=== PATIENT | female | born 1955 | race Caucasian/White ===

== ENCOUNTER 2017-12-01 08:28 | Outpatient (REF) | payer MEDICAID, SELFPAY ==
[2017-12-01 14:59] LABS: ALT 25 U/L (12-78); AST 16 U/L (15-37); Albumin 3.8 g/dL (3.4-5.0); Alkaline Phosphatase 101 U/L (46-116); Anion Gap 7.9 mmol/L (3-11); BUN 11 mg/dL (7-18); Bilirubin, Total 0.4 mg/dL (0.2-1.0); CO2 31.1 mmol/L (21.0-32.0); CREATININE 0.63 mg/dL (0.55-1.02); Calcium 9.4 mg/dL (8.5-10.1); Chloride 105 mmol/L (98-107); Cholesterol 211 mg/dL (50-200); Glucose 126 mg/dL (70-100); HDL Cholesterol 34 mg/dL (40-60); LDL CHOLESTEROL 145 mg/dL (<100); Potassium 4.2 mmol/L (3.5-5.1); Sodium 144 mmol/L (136-145); Total Protein 7.2 g/dL (6.4-8.2); Triglyceride 212 mg/dL (30-150)
== END 2017-12-01 08:48 ==
LOC: NCHCN 08:28
PROVIDERS: PCP Nurse Practitioner; Visit Provider Nurse Practitioner
DX: I10 Essential (primary) hypertension (principal); E78.2 Mixed hyperlipidemia
CPT/HCPCS: 80053; 80061; 83721

== ENCOUNTER 2018-03-30 13:28 | Outpatient (REF) | payer MEDICAID, SELFPAY ==
[2018-03-30 19:56] LABS: Cholesterol 239 mg/dL (50-200); HDL Cholesterol 39 mg/dL (40-60); LDL CHOLESTEROL 152 mg/dL (<100); Triglyceride 313 mg/dL (30-150)
== END 2018-03-30 13:48 ==
LOC: NCHCN 13:28
PROVIDERS: PCP Nurse Practitioner; Visit Provider Nurse Practitioner
DX: E78.2 Mixed hyperlipidemia (principal); R73.9 Hyperglycemia, unspecified
CPT/HCPCS: 80061; 83721

== ENCOUNTER 2018-10-25 05:20 | Observation (INO) | payer MEDICAID, SELFPAY ==
[2018-10-25] VITALS (8 sets, daily range): BP systolic 130–192; BP diastolic 81–106; PULSE 102–120; RESP 18–20; TEMP 36.2–37.6; O2SAT 93–97
--- NOTE | 2018-10-25 05:35 | DI.CT_ITS ---
SYMPTOM/DIAGNOSIS: HEMOPTYSIS, PLEURITIC CHEST PAIN, TOBACCO HISTORY PE CHEST CT: CT angiography was performed with multi slice acquisition and multi planar and 3D reconstruction. The study was carried out according to the usual protocol. There is no evidence of PE. There is no evidence of an aortic dissection. There is a 5.8 by 4.5 cm. left lower lobe mass consistent with a tumor. The mass encases the pulmonary arteries. There are small patchy ground glass opacities in the upper lobes and a 6 mm. pleural based nodule is identified in the superior right upper lobe. There are findings consistent with centrilobular emphysema. There is no pneumothorax or pleural effusion. There is no pericardial effusion. There is no evidence of lymphadenopathy. There is no acute bony abnormality. SUMMARY: A 5.8 by 4.5 cm. left lower lobe mass would be consistent with a tumor. There are small patchy ground glass densities bilaterally in the upper lobes which could represent an infectious process. A 6 mm. pleural based nodular density is also identified in the superior right lower lobe. There is no evidence of pulmonary embolic disease.
--- NOTE | 2018-10-25 05:37 | W.ED.GENAD ---
Discharge Plan Disposition Patient Disposition: [facility] INPATIENT Condition: Stable Discharge Details Chief Complaint: RespSymp Clinical Impression: Cough with hemoptysis, Lung mass Primary Care Provider: Gabriela Steen ED Provider: Castillo Denny Home Meds and New Rx's Prescriptions: No Action pravastatin [Pravachol] 40 MG tablet 40 mg PO DAILY RF: 0 aspirin [Aspirin Low-Strength] 81 MG tablet,chewable 81 mg PO DAILY RF: 0 hydrochlorothiazide 25 MG tablet 25 mg PO DAILY RF: 0 FLEXERIL 10 MG tablet 10 mg PO BID PRNRF: 0 cholecalciferol (vitamin D3) [Vitamin D3] 2,000 UNIT tablet 2,000 unit PO DAILY RF: 0 losartan 25 mg Tablet 25 mg PO DAILY RF: 0 Medical Decision Making This is a 62-year-old female with past medical history of pretension, high cholesterol, tobacco abuse daily aspirin use who presents for evaluation of hemoptysis. Patient states that she developed scant hemoptysis 6 months ago, was told by her PCP to return in 6 months for reevaluation. Patient states that over the last few days she has had a significant notable increase in her hemoptysis including large clots. She does admit to pleuritic chest pain in the left side of her chest that radiates to her left back. She also states that since she was taken off her metoprolol she has noticed an exertional chest pain which she describes as a chest tightness and squeeze, worse with exertion and activity, improved by rest. She denies any history of PE or blood clots. She denies any history of personal NE. Physical exam demonstrates crackles in the bases of her lungs, mild tachycardia, no hypoxemia. Pulses are equal bilaterally, exam is otherwise benign. Differential is concerning for PE, stable angina, Anupam's granulomatosis, cancer pulmonary mass. We will get a CT angiogram of the patient's chest for further evaluation, perform an ACS work-up, rehydrate the patient, and reassess. Initially EKG at this time is positive for tachycardia but otherwise relatively unremarkable. 8 AM Laboratory work-up is returned benign, EKG benign, troponin negative, CT scan has returned and demonstrates notable left-sided lung mass, notably concerning for a tumor. Patient's hemoptysis is stabilized here. Vital signs are relatively stable. I discussed the findings with the patient she is notably distraught. She does have significant difficulty at this time grasping the current situation. I do not feel that she is safe for discharge home for close follow-up. I contacted the hospitalist, he agrees with the assessment and plan. Recommendation is 24-hour observation, expedited follow-up with pulmonology for biopsy, and oncology for treatment. Dr. Colby agrees with the assessment and plan. I have extensively reviewed the treatment plan with the patient. I have addressed all patient concerns at this time. I have also discussed the plan with the admitting physician and they agree with the current assessment and plan and have agreed to assume responsibility for the patient. All parties demonstrate verbal understanding and agreement with our assessment and plan at this time. EKG 5: 42 Rate 105, intervals normal, sinus tachycardia, no significant ST elevations or depressions, no T wave inversions aside for in V1. No Q waves. FINDINGS: Pulmonary arteries: No PE Aorta: No aortic dissection. Lungs: 5.8 x 4.5 cm left lower lobe mass consistent with tumor. The mass encases pulmonary arteries. Small patchy ground glass opacities in bilateral upper lobes. 6 mm pleural-based nodular density in the superior right lower lobe. Centrilobular emphysematous changes Pleural space: No pneumothorax. No pleural effusion. Heart: No pericardial effusion. Lymph nodes: No enlarged lymph nodes. Bones/joints: No acute fracture. Soft tissues: Unremarkable. IMPRESSION: 1: 5.8 x 4.5 cm left lower lobe mass consistent with tumor. 2: Small patchy ground glass opacities in bilateral upper lobes. Possible mild infection 3: 6 mm pleural-based nodular density in the superior right lower lobe 4: No PE THIS REPORT CONTAINS FINDINGS THAT MAY BE CRITICAL TO PATIENT CARE. The findings were verbally communicated via telephone conference with CASTILLO DENNY at 7:24 AM EDT on 10/25/2018. The findings were acknowledged and understood. Thank you for allowing us to participate in the care of your patient. Dictated and Authenticated by: Elieser Ravi MD [facility] General Date/Time Provider Initiated Documentation: 10/25/18 05:26. HPI Narrative: This is a 62-year-old female with a past medical history of hypertension, high cholesterol, chronic tobacco abuse, who presents today for evaluation of hemoptysis. Patient states that 6 months ago she was noticing scant amounts of hemoptysis in her sputum when she would cough. Per patient she states that at that time her PCP no additional recommendations and recommended follow-up in 6 months. Patient states that she is continued to have small amounts of scant hemoptysis however over the last few days she has noticed a significant increase. She is also noticed associated pleuritic chest pain, a burning sensation in her chest. It radiates to her left shoulder. In addition to this she has noticed that since she stopped taking her metoprolol she is noticed an exertional chest pain which she describes as a tightness in her left chest. Worse when she walks, performs activities, or exerts herself. Improved with rest. She denies any arm or neck pain. She denies any headache or vision changes. She denies any fever or chills. She does admit to a 30 pound weight loss over the last year. She does take daily aspirin but no other blood thinners. She continues to smoke regularly. She has no other complaints or modifying factors. She denies any history of long trips, recent surgeries or procedures, previous history of PE or DVT. She denies a family history of PE or recent NE. Related Data Home Medications Medication Instructions Recorded Confirmed Flexeril 10 mg PO BID PRN tab-cap 08/24/12 10/25/18 aspirin [Aspirin Low-Strength] 81 mg PO DAILY tab-cap 08/24/12 10/25/18 hydrochlorothiazide 25 mg PO DAILY tab-cap 08/24/12 10/25/18 pravastatin [Pravachol] 40 mg PO DAILY tab-cap 08/24/12 10/25/18 cholecalciferol (vitamin D3) 2,000 unit PO DAILY 06/13/16 10/25/18 [Vitamin D3] losartan 25 mg PO DAILY 10/25/18 10/25/18 Allergies Allergy/AdvReac Type Severity Reaction Status Date / Time LAZARO Inhibitors Allergy Severe airway Unverified 10/25/18 07:49 edema ciprofloxacin [From Cipro] Allergy Severe Hives Unverified 10/25/18 07:49 ciprofloxacin HCl Allergy Severe Hives Unverified 10/25/18 07:49 [From Cipro] lisinopril Allergy Severe airway Unverified 10/25/18 07:49 edema General Stated Complaint: RespSymp RAVEN: 4 Review of Systems Review of Systems ROS Unobtainable: All systems reviewed & are unremarkable except as noted in HPI and below PFSH Medical History Acquired hallux rigidus Arthritis thumb joints atherosclerosis Bruit 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 Sister Obesity Sister Obesity Sister Obesity Sister Obesity Sister Obesity Brother No problems noted. Brother No problems noted. Brother No problems noted. Brother No problems noted. Brother No problems noted. Social History Smoking/Tobacco Use Status: Current every day Drug use: Never Do you feel safe in your relationship?: Yes Exam Narrative Exam Narrative: 1.Const: Well-nourished, Well-developed, appearing stated age 2.Eyes: PERRL, no conjunctival injection, and symmetrical lids. 3.ENT: Atraumatic external nose and ears. Moist MM. Neck: Symmetric, trachea midline, No thyromegaly. 4.CVS: +S1/S2, No murmurs or gallops. Peripheral pulses 2+ and equal in all extremities. Brisk capillary refill in all extremities. 5.RESP: Unlabored respiratory effort. Crackles in the bases bilaterally 6.GI: Soft, Nontender/Nondistended, No hepatosplenomegaly. No guarding or rebound. 7.MSK: Normocephalic/Atraumatic, Extremities w/o deformity or ttp No cyanosis or clubbing, Normal movement of all extremities 8.Skin: Warm, Dry. No rashes or lesions. 9.Neuro: principal archaeologist II-XII grossly intact. Sensation grossly intact, no focal neurologic deficits. 10.Psych: (AAO) x3. Appropriate mood and affect Course Vital Signs Vital signs: Vital Signs Temperature 36.8 C 10/25/18 05:25 Pulse 111 H 10/25/18 05:25 Respiratory Rate 20 10/25/18 05:25 Blood Pressure 133/94 H 10/25/18 05:25 Pulse Oximetry 95 10/25/18 05:25 Temperature 36.8 C 10/25/18 05:25 Temperature Source Temporal Artery Scan 10/25/18 05:25 Pulse 111 H 10/25/18 05:25 Respiratory Rate 20 10/25/18 05:25 Respiratory Effort Non-Labored 10/25/18 05:28 Respiratory Depth Normal 10/25/18 05:28 Blood Pressure 133/94 H 10/25/18 05:25 Blood Pressure Position Sitting 10/25/18 05:25 Pulse Oximetry 95 10/25/18 05:25 Oxygen Delivery Method Room Air 10/25/18 05:25 Oxygen Flow Rate 0 10/25/18 05:25 Pain Level 0 10/25/18 05:25
[2018-10-25] MEDS: Normal Saline 1,000 ML 1000 ML IV (05:50)
[2018-10-25 06:04] LABS: Abs Immature Grans 0.02 k/cumm (0.0-0.09); Absolute Basophil Count 0.02 k/cumm (0.0-0.2); Absolute Eosinophil Count 0.29 k/cumm (0.0-0.7); Absolute Lymphocyte Count 1.28 k/cumm (1.2-3.4); Absolute Monocyte Count 0.72 k/cumm (0.11-0.7); Absolute Neutrophil Count 6.55 k/cumm (1.2-6.7); Basophils % 0.2; Eosinophils % 3.3; HCT 42.8 % (36.0-46.0); HGB 14.3 g/dL (12.0-15.5); Immature Grans % 0.2; Lymphocytes % 14.4; Mean Corp. HGB Concentration 33.4 g/dL (32.0-36.0); Mean Corpuscular Hemoglobin 30.8 pg (27.0-33.0); Mean Corpuscular Volume 92.2 fL (80-95); Mean Platelet Volume 10.2 fL (8.0-11.0); Monocytes % 8.1; Neutrophils % 73.8; Platelet Count 274 x1000/uL (130-400); RBC 4.64 m/cumm (4.00-5.20); RBC Distribution Width 13.4 % (11.7-14.6); White Blood Cell Count 8.88 k/cumm (4.4-10.8)
[2018-10-25 06:06] LABS: BE (Venous) 5.9 mmol/L (-3-3); HCO3 (Venous) 31 mmol/L (22-28); O2 Sat (Venous) 78 % (70-80); TCO2 (Venous) 28 mmol/L (22-29); pCO2 (Venous) 50 mm/Hg (34-47); pH (Venous) 7.39 (7.32-7.43); pO2 (Venous) 41 mm/Hg (28-44)
[2018-10-25 06:18] LABS: Prothrombin Time 9.9 sec (9.3-11.0)
[2018-10-25 06:29] LABS: ALT 17 U/L (14-59); AST 11 U/L (15-37); Albumin 3.5 g/dL (3.4-5.0); Alkaline Phosphatase 129 U/L (46-116); Anion Gap 8.4 mmol/L (3-11); BUN 15 mg/dL (7-18); Bilirubin, Total 0.5 mg/dL (0.2-1.0); CO2 29.6 mmol/L (21.0-32.0); CREATININE 0.67 mg/dL (0.55-1.02); Calcium 8.9 mg/dL (8.5-10.1); Chloride 103 mmol/L (98-107); Glucose 130 mg/dL (70-100); NT-proBNP 16 pg/mL; Potassium 3.9 mmol/L (3.5-5.1); Sodium 141 mmol/L (136-145); Total Protein 7.4 g/dL (6.4-8.2); Troponin I < 0.05 ng/mL (0.00-0.06)
[2018-10-25] MEDS: Omnipaque 350 MG/ML 100 ML BTL IJ (07:02)
--- NOTE | 2018-10-25 07:25 | DI.VRAD_ITS ---
EXAM: CT Angiography Chest With Contrast EXAM DATE/TIME: 10/25/2018 5:37 AM CLINICAL HISTORY: 62 years old, female; Cough; Pleuordynia; Patient HX: Hemoptysis, pleuritic chest pain, tob HX TECHNIQUE: Imaging protocol: Computed tomographic angiography of the chest with intravenous contrast. 3D rendering: MIP reconstructed images were created and reviewed. COMPARISON: No relevant prior studies available. FINDINGS: Pulmonary arteries: No PE Aorta: No aortic dissection. Lungs: 5.8 x 4.5 cm left lower lobe mass consistent with tumor. The mass encases pulmonary arteries. Small patchy ground glass opacities in bilateral upper lobes. 6 mm pleural-based nodular density in the superior right lower lobe. Centrilobular emphysematous changes Pleural space: No pneumothorax. No pleural effusion. Heart: No pericardial effusion. Lymph nodes: No enlarged lymph nodes. Bones/joints: No acute fracture. Soft tissues: Unremarkable. IMPRESSION: 1: 5.8 x 4.5 cm left lower lobe mass consistent with tumor. 2: Small patchy ground glass opacities in bilateral upper lobes. Possible mild infection 3: 6 mm pleural-based nodular density in the superior right lower lobe 4: No PE THIS REPORT CONTAINS FINDINGS THAT MAY BE CRITICAL TO PATIENT CARE. The findings were verbally communicated via telephone conference with NICOLE DENNY at 7:24 AM EDT on 10/25/2018. The findings were acknowledged and understood. Dictated and Authenticated by: Elieser Ravi MD. Ordering:SALVADOR Chong MD
[2018-10-25] MEDS: Losartan 25 MG TAB PO (09:30)
[2018-10-25] MEDS: hydroCHLOROthiazide 25 MG TAB PO (09:30)
[2018-10-25] MEDS: Cholecalciferol (Vitamin D3) 1,000 UNIT TAB 2000 UNITS PO (09:30)
--- NOTE | 2018-10-25 11:05 | NUR.NOTE ---
Nursing Note: Pt to MS floor at 0910 via stretcher from ER. Pt able to ambulate independently into room with steady gait noted. VSS. Pt oriented to MS floor, call leger, etc. Call leger within reach. Pt moved from initial room of 217 to 209 for increased visibility and socialization. RN will continue to monitor.
[2018-10-25] MEDS: LORazepam 0.5 MG TAB PO ×3 (11:33→19:44)
--- NOTE | 2018-10-25 11:55 | HPE_ITS ---
Date of service: 10/25/18 Time of Service: 11:55 Assessment and Plan Assessment and plan (1) Lung mass: Status: Acute Assessment and plan: Evidence of a 5.8 X 4.5 cm LLL Mass consistent with tumor, and patient endorses concurrent worsening hemoptysis, weight loss, night sweats, and chest pain. Based on symptoms likely etiology for patient's complaints of Hemoptysis 6 months ago. - Current Hgb stable. Will hold ASA, monitor overnight, and expedite follow-up with Pulm for tissue diagnosis with subsequent Oncology appointment. Plan was discussed in detail with patient and she agrees with course of action. (2) Hemoptysis: Status: Acute Assessment and plan: As above. (3) Hypertension: Status: Chronic Assessment and plan: Continue ARB, thiazide, and monitor blood pressure. (4) Dyslipidemia: Status: Acute Assessment and plan: On nightly statin therapy. (5) Tobacco use: Status: Acute Assessment and plan: NRT with Nicotrol. (6) DVT prophylaxis: Status: Acute Assessment and plan: Avoid Chemical Prophylaxis given current hemoptysis. SCDs ordered. History of Present Illness History of Present Illness Chief Complaint: Worsening Hemoptysis, Pulmonary Mass Narrative: 62 year old woman with a prior history of tobacco use admitted from [facility] Emergency Department following a diagnosis of a pulmonary mass. Ms. Bruno has a past Medical History significant for HTN, Dyslipidemia, and tobacco use. She reports onset of hemoptysis approximately 6 months ago - states that she was informed by her PCP to return for reevaluation in 6 months, but without further work-up with labs or imaging. Her symptoms worsened significantly over the last few days prompting an urgent evaluation in the ED. She also admits upon questioning to an approximate 30 pound weight loss over the last 6 months, intermittent night sweats (hair 'sticking' to her neck), and occasional chest pain in the left aspect of her chest radiating to the back. La boratory work-up in the ED was unremarkable, but imaging with CTA of the chest showed a large left sided lung mass concerning for malignancy. As the patient was significantly upset over the news decision was made to admit her overnight for observation, and assist in procuring appropriate and timely follow-up upon discharge. 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 Sister Obesity Sister Obesity Sister Obesity Sister Obesity Sister Obesity Brother No problems noted. Brother No problems noted. Brother No problems noted. Brother No problems noted. Brother No problems noted. Social History Smoking/Tobacco Use Status: Current every day Drug use: Never Do you feel safe in your relationship?: Yes Meds Home Medications and Allergies Home Medications Medication Instructions Recorded Confirmed Type Flexeril 10 mg PO BID PRN tab-cap 08/24/12 10/25/18 History aspirin [Aspirin Low-Strength] 81 mg PO DAILY tab-cap 08/24/12 10/25/18 History hydrochlorothiazide 25 mg PO DAILY tab-cap 08/24/12 10/25/18 History pravastatin [Pravachol] 40 mg PO DAILY tab-cap 08/24/12 10/25/18 History cholecalciferol (vitamin D3) 2,000 unit PO DAILY 06/13/16 10/25/18 History [Vitamin D3] losartan 25 mg PO DAILY 10/25/18 10/25/18 History Allergies Allergy/AdvReac Type Severity Reaction Status Date / Time LAZARO Inhibitors Allergy Severe airway Unverified 10/25/18 07:49 edema ciprofloxacin [From Cipro] Allergy Severe Hives Unverified 10/25/18 07:49 ciprofloxacin HCl Allergy Severe Hives Unverified 10/25/18 07:49 [From Cipro] lisinopril Allergy Severe airway Unverified 10/25/18 07:49 edema Exam Narrative Exam Narrative: General: Patient appears comfortable, AAOX3, NAD Neck: Supple CV: Regular, nontachycardic, S1S2, No rubs, murmurs, or gallops. Pulmonary: Clear to auscultation bilaterally with exception of slightly decreased mid left lung zone breath sounds, no crackles, wheezing, or rhonchi Abdomen: + Bowel Sounds, soft, nontender, nondistended Vascular: No lower extremity edema Psych: Normal mood and affect. Results Imaging CT scan - chest: report reviewed and image reviewed Additional studies: EXAM: CT Angiography Chest With Contrast EXAM DATE/TIME: 10/25/2018 5:37 AM CLINICAL HISTORY: 62 years old, female; Cough; Pleuordynia; Patient HX: Hemoptysis, pleuritic chest pain, tob HX TECHNIQUE: Imaging protocol: Computed tomographic angiography of the chest with intravenous contrast. 3D rendering: MIP reconstructed images were created and reviewed. COMPARISON: No relevant prior studies available. FINDINGS: Pulmonary arteries: No PE Aorta: No aortic dissection. Lungs: 5.8 x 4.5 cm left lower lobe mass consistent with tumor. The mass encases pulmonary arteries. Small patchy ground glass opacities in bilateral upper lobes. 6 mm pleural-based nodular density in the superior right lower lobe. Centrilobular emphysematous changes Pleural space: No pneumothorax. No pleural effusion. Heart: No pericardial effusion. Lymph nodes: No enlarged lymph nodes. Bones/joints: No acute fracture. Soft tissues: Unremarkable. IMPRESSION: 1: 5.8 x 4.5 cm left lower lobe mass consistent with tumor. 2: Small patchy ground glass opacities in bilateral upper lobes. Possible mild infection 3: 6 mm pleural-based nodular density in the superior right lower lobe 4: No PE Labs Result diagrams: 10/25/18 05:50 10/25/18 05:50 Labs: Laboratory Results - last 24 hr 10/25/18 10/25/18 10/25/18 05:50 05:50 05:50 WBC 8.88 RBC 4.64 Hgb 14.3 Hct 42.8 MCV 92.2 MCH 30.8 MCHC 33.4 RDW 13.4 Plt Count 274 MPV 10.2 Immature Gran % 0.2 Neutrophils % 73.8 Lymphocytes % 14.4 Monocytes % 8.1 Eosinophils % 3.3 Basophils % 0.2 Absolute Neutrophils 6.55 Absolute Lymphocytes 1.28 Absolute Monocytes 0.72 H Absolute Eosinophils 0.29 Absolute Basophils 0.02 PT 9.9 INR 1.0 APTT 27.0 VBG pH VBG pCO2 VBG pO2 VBG HCO3 VBG Total CO2 VBG O2 Saturation VBG Base Excess Sodium 141 Potassium 3.9 Chloride 103 Carbon Dioxide 29.6 Anion Gap 8.4 BUN 15 Creatinine 0.67 Estimated GFR/1.73 m2 >= 60.00 Glucose 130 H Calcium 8.9 Total Bilirubin 0.5 AST 11 L ALT 17 Alkaline Phosphatase 129 H Troponin I < 0.05 NT-Pro-B Natriuret Pep 16 Total Protein 7.4 Albumin 3.5 10/25/18 05:50 WBC RBC Hgb Hct MCV MCH MCHC RDW Plt Count MPV Immature Gran % Neutrophils % Lymphocytes % Monocytes % Eosinophils % Basophils % Absolute Neutrophils Absolute Lymphocytes Absolute Monocytes Absolute Eosinophils Absolute Basophils PT INR APTT VBG pH 7.39 VBG pCO2 50 H VBG pO2 41 VBG HCO3 31 H VBG Total CO2 28 VBG O2 Saturation 78 VBG Base Excess 5.9 H Sodium Potassium Chloride Carbon Dioxide Anion Gap BUN Creatinine Estimated GFR/1.73 m2 Glucose Calcium Total Bilirubin AST ALT Alkaline Phosphatase Troponin I NT-Pro-B Natriuret Pep Total Protein Albumin Last Vital Signs Temp 36.5 C 10/25/18 11:40 Pulse 120 H 10/25/18 11:40 Resp 19 10/25/18 11:40 BP 183/91 H 10/25/18 11:40 Pulse Ox 97 10/25/18 11:40
--- NOTE | 2018-10-25 11:57 | INITIAL_ITS ---
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 Low back pain, Mixed hyperlipidemia, dobbins's neuroma. Surgical: Ligation of fallopian tube, right breast quadrantectomy PREVIOUS FUNCTIONAL STATUS/SOCIAL/FAMILY SUPPORTS:: Independent at baseline. Son, Delfin,and TIARRA live nearby in [place] and they are supportive but have a busy life. Lupis [facility]. Rent includes heat, electric, water, trash and plowing. Needs to maintain a job to supplement her income so that ends meet each month. 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 States she has 5 lares people in her life that actually care about her and are there to help. CURRENT FUNCTIONAL STATUS:: Lupis is very frightened by the news she received today and says she doesn't even know where to start with asking questions. One day her life is going along and she is making do from day to day and the next day she is faced with potentially catastrophic news about her health and possibly a cancer diagnosis. She wants to see the production clerk quickly and start treatment if she needs chemotherapy and radiation treatment for cancer. Tearful but determined to take this one step at a time. ADVANCE DIRECTIVES:: None on file and not able to address this today Has patient been provided with information about the portal?: No Did the patient sign up for the portal?: No CODE STATUS:: Full Code INSURANCE COVERAGE / FINANCIAL ISSUES:: [place] Medicaid A EDS CURRENT HOME/COMMUNITY SERVICES/EQUIPMENT:: None at this time PRIMARY CARE PHYSICIAN:: [facility]: Gabriela Steen NP POTENTIAL DISCHARGE NEEDS:: Follow up appointments with PCP, Brake Assembler and referral to Oncology PATIENT/FAMILY EDUCATION NEEDS:: Discharge instructions and information regarding her diagnosis ANTICIPATED BARRIERS TO DISCHARGE:: None identified TRANSPORTATION:: She drives and has friends and family to help PLAN:: Lupis will return home and follow up with specialists at [facility] as an outpatient. No services needed at this time.
[2018-10-25] MEDS: Normal Saline Flush 10 ML SYR IVP ×2 (15:40→19:45)
[2018-10-25] MEDS: Acetaminophen 325 MG TAB PO (16:42)
[2018-10-25] MEDS: Pravastatin 40 MG TAB PO (19:44)
[2018-10-26 03:45] VITALS: BP 134/88; PULSE 104; RESP 20; TEMP 37.3; O2SAT 95
[2018-10-26 07:04] VITALS: BP 143/90; PULSE 109; RESP 18; TEMP 37.5; O2SAT 95
[2018-10-26 07:20] LABS: Anion Gap 8.3 mmol/L (3-11); BUN 10 mg/dL (7-18); CO2 28.7 mmol/L (21.0-32.0); CREATININE 0.56 mg/dL (0.55-1.02); Calcium 8.7 mg/dL (8.5-10.1); Chloride 104 mmol/L (98-107); Glucose 111 mg/dL (70-100); Magnesium 2.2 mg/dL (1.8-2.4); Sodium 141 mmol/L (136-145)
[2018-10-26 07:36] LABS: Absolute Basophil Count 0.01 k/cumm (0.0-0.2); Absolute Eosinophil Count 0.17 k/cumm (0.0-0.7); Absolute Lymphocyte Count 1.31 k/cumm (1.2-3.4); Absolute Monocyte Count 0.59 k/cumm (0.11-0.7); Absolute Neutrophil Count 3.47 k/cumm (1.2-6.7); Basophils % 0.2; Eosinophils % 3.1; HGB 13.5 g/dL (12.0-15.5); Lymphocytes % 23.6; Mean Corp. HGB Concentration 32.9 g/dL (32.0-36.0); Mean Corpuscular Hemoglobin 30.4 pg (27.0-33.0); Mean Corpuscular Volume 92.3 fL (80-95); Mean Platelet Volume 10.6 fL (8.0-11.0); Monocytes % 10.6; Neutrophils % 62.5; Platelet Count 240 x1000/uL (130-400); RBC 4.44 m/cumm (4.00-5.20); RBC Distribution Width 13.1 % (11.7-14.6); White Blood Cell Count 5.55 k/cumm (4.4-10.8)
[2018-10-26] MEDS: hydroCHLOROthiazide 25 MG TAB PO (07:36)
[2018-10-26] MEDS: Losartan 25 MG TAB PO (07:37)
[2018-10-26] MEDS: Cholecalciferol (Vitamin D3) 1,000 UNIT TAB 2000 UNITS PO (07:37)
[2018-10-26 10:22] VITALS: PULSE 114; PULSE 121; PULSE 125; RESP 16; RESP 18; RESP 22; O2SAT 94; O2SAT 95
[2018-10-26 15:46] VITALS: BP 117/85; PULSE 115; RESP 18; TEMP 37.1; O2SAT 95
--- NOTE | 2018-10-26 16:34 | W.PM.PROGNOT ---
Date of Service Date of service: 10/26/18 Time of Service: 16:34 Assessment and Plan Assessment and plan (1) Lung mass: Status: Acute Assessment and plan: Evidence of a 5.8 X 4.5 cm LLL Mass consistent with tumor, and patient endorses concurrent worsening hemoptysis, weight loss, night sweats, and chest pain. Based on symptoms likely etiology for patient's complaints of Hemoptysis 6 months ago. - Current Hgb remains stable and delaney. Will continue to hold ASA. - Patient has had referral faxed to pulmonology at [facility], but as of yet unable to discuss this by telephone. Plan will be to continue to monitor overnight, and expedite follow-up with Pulm for tissue diagnosis with subsequent Oncology appointment. Plan was discussed in detail with patient and she agrees with course of action. - Of note, small patchy ground glass densities were also noted bilaterally in the Upper Lobes that could represent an infectious process - Patient has a normal WBC with normal diff, and remains afebrile. Doubt infection at this time, but will monitor. (2) Hemoptysis: Status: Acute Assessment and plan: As above. (3) Hypertension: Status: Chronic Assessment and plan: Continue ARB, thiazide, and monitor blood pressure. (4) Dyslipidemia: Status: Acute Assessment and plan: On nightly statin therapy. (5) Tobacco use: Status: Acute Assessment and plan: NRT with Nicotrol. (6) DVT prophylaxis: Status: Acute Assessment and plan: Avoid Chemical Prophylaxis given current hemoptysis. SCDs ordered. Subjective Subjective Interval history since last seen: 62 year old woman with a prior history of tobacco use admitted from [facility] Emergency Department following a diagnosis of a pulmonary mass. Ms. Bruno has a past Medical History significant for HTN, Dyslipidemia, and tobacco use. She reports onset of hemoptysis approximately 6 months ago - states that she was informed by her PCP to return for reevaluation in 6 months, but without further work-up with labs or imaging. Her symptoms worsened significantly over the few days prior to her admission, prompting an urgent evaluation in the ED. She also admits upon questioning to an approximate 30 pound weight loss over the last 6 months, intermittent night sweats (hair 'sticking' to her neck), and occasional chest pain in the left aspect of her chest radiating to the back. Laboratory work-up in the ED was unremarkable, but imaging with CTA of the chest showed a large left sided lung mass concerning for malignancy. As the patient was significantly upset over the news decision was made to admit her overnight for observation, and assist in procuring appropriate and timely follow-up upon discharge. This morning the patient appears less anxious and essentially unchanged from time of admission. No overnight events were reported. Remains afebrile. Exam Narrative Exam Narrative: General: Patient appears comfortable, AAOX3, NAD Neck: Supple CV: Regular, nontachycardic, S1S2, No rubs, murmurs, or gallops. Pulmonary: Clear to auscultation bilaterally with exception of slightly decreased mid left lung zone breath sounds, no crackles, wheezing, or rhonchi Abdomen: + Bowel Sounds, soft, nontender, nondistended Vascular: No lower extremity edema Psych: Anxious mood and affect. Objective Objective Clinical Data: Abnormal lab results 10/26/18 Range/Units 06:30 Glucose 111 H (70-100) mg/dL Vital Signs Temperature 37.1 C 10/26/18 15:46 Temperature Source Tympanic 10/26/18 15:46 Pulse 115 H 10/26/18 15:46 Pulse Rhythm Regular 10/26/18 07:35 Pulse Strength Normal 10/25/18 07:59 Respiratory Rate 18 10/26/18 15:46 Respiratory Effort Non-Labored 10/26/18 07:35 Respiratory Depth Normal 10/26/18 07:35 Respiratory Pattern Normal 10/26/18 07:35 Blood Pressure 117/85 10/26/18 15:46 Blood Pressure Mean 123 10/25/18 07:59 Blood Pressure Position Sitting 10/25/18 07:59 Pulse Oximetry 95 10/26/18 15:46 Oxygen Delivery Method Room Air 10/26/18 15:46 Oxygen Flow Rate 0 10/26/18 15:46 Pain Level 0 10/26/18 15:46 Comment 10/26/18 07:04 Intake & Output 10/25/18 10/26/18 10/26/18 23:59 11:59 23:59 Intake Total 970 / 2450 1010 / 1130 120 / 1130 Output Total 1200 / 2400 1200 / 1200 Balance -230 / 50 -190 / -70 120 / -70 Intake: IV 10 1010 Oral 960 / 1440 1010 / 1130 120 / 1130 Output: Urine 1200 / 2400 1200 / 1200 Other: Urine Color Yellow Straw Urine Appearance Clear Clear Urine Odor Normal Normal Voiding Methods Toilet Toilet Laboratory Results WBC 5.55 k/cumm (4.4-10.8) D 10/26/18 06:30 RBC 4.44 m/cumm (4.00-5.20) 10/26/18 06:30 Hgb 13.5 g/dL (12.0-15.5) 10/26/18 06:30 Hct 41.0 % (36.0-46.0) 10/26/18 06:30 MCV 92.3 fL (80-95) 10/26/18 06:30 MCH 30.4 pg (27.0-33.0) 10/26/18 06:30 MCHC 32.9 g/dL (32.0-36.0) 10/26/18 06:30 RDW 13.1 % (11.7-14.6) 10/26/18 06:30 Plt Count 240 x1000/uL (130-400) 10/26/18 06:30 MPV 10.6 fL (8.0-11.0) 10/26/18 06:30 Immature Gran % 0.0 10/26/18 06:30 Neutrophils % 62.5 10/26/18 06:30 Lymphocytes % 23.6 10/26/18 06:30 Monocytes % 10.6 10/26/18 06:30 Eosinophils % 3.1 10/26/18 06:30 Basophils % 0.2 10/26/18 06:30 Absolute Neutrophils 3.47 k/cumm (1.2-6.7) 10/26/18 06:30 Absolute Lymphocytes 1.31 k/cumm (1.2-3.4) 10/26/18 06:30 Absolute Monocytes 0.59 k/cumm (0.11-0.7) 10/26/18 06:30 Absolute Eosinophils 0.17 k/cumm (0.0-0.7) 10/26/18 06:30 Absolute Basophils 0.01 k/cumm (0.0-0.2) 10/26/18 06:30 PT 9.9 sec (9.3-11.0) 10/25/18 05:50 INR 1.0 (0.9-1.1) 10/25/18 05:50 APTT 27.0 sec (21.0-31.4) 10/25/18 05:50 VBG pH 7.39 (7.32-7.43) 10/25/18 05:50 VBG pCO2 50 mm/Hg (34-47) H 10/25/18 05:50 VBG pO2 41 mm/Hg (28-44) 10/25/18 05:50 VBG HCO3 31 mmol/L (22-28) H 10/25/18 05:50 VBG Total CO2 28 mmol/L (22-29) 10/25/18 05:50 VBG O2 Saturation 78 % (70-80) 10/25/18 05:50 VBG Base Excess 5.9 mmol/L (-3-3) H 10/25/18 05:50 Sodium 141 mmol/L (136-145) 10/26/18 06:30 Potassium 4.0 mmol/L (3.5-5.1) 10/26/18 06:30 Chloride 104 mmol/L (98-107) 10/26/18 06:30 Carbon Dioxide 28.7 mmol/L (21.0-32.0) 10/26/18 06:30 Anion Gap 8.3 mmol/L (3-11) 10/26/18 06:30 BUN 10 mg/dL (7-18) 10/26/18 06:30 Creatinine 0.56 mg/dL (0.55-1.02) 10/26/18 06:30 Estimated GFR/1.73 m2 >= 60.00 (mL/min/1.73m2) 10/26/18 06:30 Glucose 111 mg/dL (70-100) H 10/26/18 06:30 Calcium 8.7 mg/dL (8.5-10.1) 10/26/18 06:30 Magnesium 2.2 mg/dL (1.8-2.4) 10/26/18 06:30 Total Bilirubin 0.5 mg/dL (0.2-1.0) 10/25/18 05:50 AST 11 U/L (15-37) L 10/25/18 05:50 ALT 17 U/L (14-59) 10/25/18 05:50 Alkaline Phosphatase 129 U/L (46-116) H 10/25/18 05:50 Troponin I < 0.05 ng/mL (0.00-0.06) 10/25/18 05:50 NT-Pro-B Natriuret Pep 16 pg/mL (-299) 10/25/18 05:50 Total Protein 7.4 g/dL (6.4-8.2) 10/25/18 05:50 Albumin 3.5 g/dL (3.4-5.0) 10/25/18 05:50
--- NOTE | 2018-10-26 16:39 | PDOC.CMPRO ---
- If Service Date Differs Date of service: 10/26/18 Time of Service: 16:39 Care Management Progress Note S/O: Lupis was sitting up in her chair when CM entered the room. Her sister, Heather, and daughter in law, Aparna, were both in the room. Lupis expressed how overwhelmed she is about the possibility of a cancer diagnosis. She also states that she is unsure what her next steps will be. CM asked if there are any new services that she will need at this time, which Lupis declined with exception of helping her obtain a new PCP. CM asked about scheduling a follow up appointment with another provider at her current PCP office, as she had requested a new PCP. Lupis stated that she does not want to go back to that office and would like a new PCP in a new office. CM coordinated a follow up appointment with Junie Rosario at [facility]. CM also provided new patient paperwork to Lupis for her to fill out in anticipation of her follow up appointment. She also stated that the doctor had requested an immediate follow up with pulmonology at [facility]. CM discussed this appointment with the community service director and Dr. Colby who was waiting to hear back from [facility] with an appointment time. CM will follow. A: Lupis is a 62 year old Female admitted for hemoptysis and lung mass (new diagnosis). P: Lupis will return home and follow up with specialists at [facility] as an outpatient, as well as follow up with new PCP. No new services at this time. CM to follow.
[2018-10-26] MEDS: LORazepam 0.5 MG TAB PO ×2 (19:54→21:37)
[2018-10-26] MEDS: Pravastatin 40 MG TAB PO (19:54)
[2018-10-26] MEDS: Normal Saline Flush 10 ML SYR IVP (19:55)
[2018-10-27] MEDS: hydroCHLOROthiazide 25 MG TAB PO (07:37)
[2018-10-27] MEDS: Losartan 25 MG TAB PO (07:37)
[2018-10-27] MEDS: Cholecalciferol (Vitamin D3) 1,000 UNIT TAB 2000 UNITS PO (07:38)
[2018-10-27] MEDS: Normal Saline Flush 10 ML SYR IVP (07:38)
[2018-10-27 07:58] VITALS: BP 133/83; PULSE 109; RESP 18; TEMP 36.7; O2SAT 92
[2018-10-27] MEDS: LORazepam 0.5 MG TAB PO (11:51)
--- NOTE | 2018-10-27 12:40 | DSE_ITS ---
Date of service: 10/27/18 Time of Service: 12:40 DS: Diagnosis Discharge Diagnosis (1) Lung mass: Status: Acute (2) Hemoptysis: Status: Acute (3) Hypertension: Status: Chronic (4) Dyslipidemia: Status: Acute (5) Tobacco use: Status: Acute Discharge Plan Disposition Patient Disposition: HOME Condition: Stable Discharge Details Chief Complaint: RespSymp Clinical Impression: Cough with hemoptysis, Lung mass Reason For Visit: HEMOPTYSIS, LUNG MASS Admit Date/Time: 10/25/18 08:10 Admit Provider: Juan Colby Attending Provider: Juan Colby Primary Care Provider: Gabriela Steen ED Provider: Castillo Mckinney Hospital Course Hospital Course: Chief Complaint: Worsening Hemoptysis HPI: 62 year old woman with a prior history of tobacco use admitted from [facility] Emergency Department following a diagnosis of a pulmonary mass. Ms. Bruno has a past Medical History significant for HTN, Dyslipidemia, and tobacco use. She reports onset of hemoptysis approximately 6 months ago - states that she was evaluated by her PCP but without further work-up with labs or imaging. Her symptoms worsened significantly over the few days prior to her admission, prompting an urgent evaluation in the ED. She also admits upon questioning to an approximate 30 pound weight loss over the last 6 months, intermittent night sweats (hair 'sticking' to her neck), and occasional chest pain in the left aspect of her chest radiating to the back. Laboratory work-up in the ED was unremarkable, but imaging with CTA of the chest showed a large left sided lung mass concerning for malignancy. As the patient was significantly distraught over the news decision was made to admit her overnight for observation, and assist in procuring appropriate and timely follow-up upon discharge. This morning the patient appears less anxious and essentially unchanged from time of admission. No overnight events were reported. Remains afebrile. Hospital Course: (1) Lung mass: Evidence of a 5.8 X 4.5 cm LLL Mass consistent with tumor, and patient endorses concurrent worsening hemoptysis, weight loss, night sweats, and chest pain. Based on symptoms likely etiology for patient's complaints of Hemoptysis 6 months ago. - Hgb remained stable and normal. Will continue to hold ASA. - Patient has had referral faxed to pulmonology at [facility], and case was discussed by telephone with the counter stacker who assured that he would expedite appointment. Repeat phone conversation this morning with the Pulmonary Clinic at [facility], with assurances for an appointment within the week. This consultation is for tissue diagnosis with subsequent Oncology appointment. - Of note, small patchy ground glass densities were also noted bilaterally in the Upper Lobes that could represent an infectious process by radiology read - Patient has a normal WBC with normal diff, and has remained afebrile. Besides the hemoptysis she has had no other significant pulmonary symptoms. Doubt infec tion at this time, but will monitor. (2) Hemoptysis: As above. (3) Hypertension: Continue ARB, thiazide, and monitor blood pressure. (4) Dyslipidemia: On nightly statin therapy. (5) Tobacco use: NRT with Nicotrol. (6) DVT prophylaxis: Avoided Chemical Prophylaxis given current hemoptysis. SCDs were ordered, and patient was ambulatory. Home Meds and New Rx's Prescriptions: New Nicotrol 10 mg Cartridge 30 cartridge inhalation Q2H PRN PRNQty: 1 RF: 0 lorazepam 0.5 mg Tablet 0.5 mg PO QID PRN PRN (Reason: Anxiety) Qty: 60 RF: 0 Continued pravastatin [Pravachol] 40 MG tablet 40 mg PO DAILY RF: 0 hydrochlorothiazide 25 MG tablet 25 mg PO DAILY RF: 0 FLEXERIL 10 MG tablet 10 mg PO BID PRNRF: 0 cholecalciferol (vitamin D3) [Vitamin D3] 2,000 UNIT tablet 2,000 unit PO DAILY RF: 0 losartan 25 mg Tablet 25 mg PO DAILY RF: 0 Discontinued aspirin [Aspirin Low-Strength] 81 MG tablet,chewable 81 mg PO DAILY RF: 0 Discharge Instructions Additional Instructions: Please see your Primary Care provider within 2 weeks. The number for the Pulmonary Clinic at [facility] is [phone] Stand Alone Forms: Nursing Discharge Form Referrals: Junie Real NP [NURSE PRACTITIONER] - 11/16/18 3:00 pm Activity:: Activity as Tolerated Equipment/Supplies:: No Equipment Needed Diet:: As Tolerated Discharge Orders Discharge Orders: Discharge Order (Routine); Ordered 10/27/18 Ordered By: Juan Colby DS: Summary Status at Discharge Functional status at discharge: independent ambulation Overall status at discharge: patient is back to baseline Mental Status: mental status grossly normal Speech and Movement: speech and movement normal Mood: congruent mood Affect: normal affect Exam Psych Mental Status: mental status grossly normal Speech and Movement: speech and movement normal Mood: congruent mood Affect: normal affect DS: Data Vitals/I&O Vitals and I&O: Vital Signs Temperature 36.7 C 10/27/18 07:58 Temperature Source Tympanic 10/27/18 07:58 Pulse 109 H 10/27/18 07:58 Pulse Rhythm Regular 10/27/18 07:35 Pulse Strength Normal 10/25/18 07:59 Respiratory Rate 18 10/27/18 07:58 Respiratory Effort 10/27/18 07:35 Respiratory Depth Normal 10/27/18 07:35 Respiratory Pattern Normal 10/27/18 07:35 Blood Pressure 133/83 10/27/18 07:58 Blood Pressure Mean 123 10/25/18 07:59 Blood Pressure Position Sitting 10/25/18 07:59 Pulse Oximetry 92 L 10/27/18 07:58 Oxygen Delivery Method Room Air 10/27/18 07:58 Oxygen Flow Rate 0 10/27/18 07:58 Pain Level 0 10/27/18 07:35 Comment 10/26/18 07:04 Intake & Output 10/26/18 10/27/18 10/27/18 23:59 11:59 23:59 Intake Total 420 / 1430 660 / 660 Balance 420 / 230 660 / 660 Intake: Oral 420 / 1430 660 / 660 Other: Urine Appearance Clear Clear Data Completed and Pending Completed studies during hospitalization [Text1]: Exam(s) a CT:CT chest PE CTA SYMPTOM/DIAGNOSIS: HEMOPTYSIS, PLEURITIC CHEST PAIN, TOBACCO HISTORY PE CHEST CT: CT angiography was performed with multi slice acquisition and multi planar and 3D reconstruction. The study was carried out according to the usual protocol. There is no evidence of PE. There is no evidence of an aortic dissection. There is a 5.8 by 4.5 cm. left lower lobe mass consistent with a tumor. The mass encases the pulmonary arteries. There are small patchy ground glass opacities in the upper lobes and a 6 mm. pleural based nodule is identified in the superior right upper lobe. There are findings consistent with centrilobular emphysema. There is no pneumothorax or pleural effusion. There is no pericardial effusion. There is no evidence of lymphadenopathy. There is no acute bony abnormality. SUMMARY: A 5.8 by 4.5 cm. left lower lobe mass would be consistent with a tumor. There are small patchy ground glass densities bilaterally in the upper lobes which could represent an infectious process. A 6 mm. pleural based nodular density is also identified in the superior right lower lobe. There is no evidence of pulmonary embolic disease. 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 Sister Obesity Sister Obesity Sister Obesity Sister Obesity Sister Obesity Brother No problems noted. Brother No problems noted. Brother No problems noted. Brother No problems noted. Brother No problems noted. Social History Smoking/Tobacco Use Status: Current every day Drug use: Never Do you feel safe in your relationship?: Yes
--- NOTE | 2018-10-27 13:41 | PDOC.CMDIS ---
- If Service Date Differs Date of service: 10/27/18 Time of Service: 13:41 LACE Index Scoring Tool - Questions: Length of Stay (in days): 3 Acuity (Admit via E.D.?): Yes Comorbidities: Any Tumor E.D. Visits: 1 - Answers: Total Score: 9 Risk of Readmission: Low Risk Care Management Discharge Reason for Hospitalization: Hemoptysis, Lung Mass (New Diagnosis) Discharge Plan: Lupis will return home with a follow up appointment to see her new PCP, Junie Rosario NP, at [facility] on 11/16/18 @ 3pm. She will also have a follow up appointment to be scheduled with [place] [facility] [place] as soon as possible. ISAIAH faxed dc summary to [facility] [place], who will follow up with Lupis. She will be transported by private vehicle, driven by her daughter in law, Aparna. No additional services needed at this time. Patient/Family Education Needs: Review discharge instructions, follow up appointments, discussion of self care needs including Ask Me Three
--- NOTE | 2018-10-27 15:13 | CHAPLAIN ---
I checked in with Lupis twice today. She had family members with her each time. She talked about waiting to hear about appointments being made for her at [facility]. She was very appreciative of a prayer shawl, and talked about how much she liked the hand-knit squeeze ball she was given.
== END 2018-10-27 14:16 | disposition home or self-care (01) ==
LOC: ER 08:46 → MS 09:07
PROVIDERS: Admitting Provider Internal Medicine; Emergency Provider Student in an Organized Health Care Education/Training Program; PCP Nurse Practitioner; Visit Provider Internal Medicine
DX: R04.2 Hemoptysis (principal); R91.8 Other nonspecific abnormal finding of lung field; I10 Essential (primary) hypertension; E78.5 Hyperlipidemia, unspecified; F17.210 Nicotine dependence, cigarettes, uncomplicated
CPT/HCPCS: 36415; 71275; 80048; 80053; 82805; 93005; 96360; 99217; 99219; 99232; 99285; 83735; 83880; 84484; 85025; 85610; 85730; 93010; 99225; G0378; J3490

== ENCOUNTER 2018-11-25 02:21 | Outpatient (CLI) | payer MEDICAID, SELFPAY ==
[2018-11-25] MEDS: Inhaler, Assist Device 1 EACH MC (08:53)
[2018-11-25] MEDS: Albuterol HFA 18 GM 200 PUFF INH IH (08:54)
--- NOTE | 2018-11-25 09:34 | PFT_ITS ---
PULMONARY FUNCTION TEST REPORT DATE OF SERVICE: November 25, 2018 REQUESTING PROVIDER: Junie England N.P. Spirometry shows mild obstructive airways disease with no significant bronchodilator response. Lung volumes show no evidence of restriction. Diffusion capacity moderately reduced, which is mildly reduced when corrected to alveolar volume. Airways resistance mildly elevated. IMPRESSION: Mild obstructive airways disease with no significant bronchodilator response. This is associated with moderate diffusion defect. For consideration for lung resection surgery, the patient?s post-bronchodilator FEV1 is 1.52 liters; uncorrected diffusion capacity is 59%. Clinical correlation recommended. KALI/kamila
== END 2018-11-25 02:41 ==
PROVIDERS: PCP Nurse Practitioner Adult Health; Visit Provider Nurse Practitioner Adult Health
DX: R91.8 Other nonspecific abnormal finding of lung field (principal); R04.2 Hemoptysis; R07.89 Other chest pain; Z87.891 Personal history of nicotine dependence
CPT/HCPCS: 94060; 94150; 94726; 94729